=== PATIENT | female | born 1950 | race Two or more races ===

== ENCOUNTER 2016-08-08 05:32 | Inpatient (IN) | payer OTHER ==
--- NOTE | 2016-08-07 21:06 | PREOPHP ---
DATE OF ADMISSION: 08/08/2016 This patient is coming for surgery on 08/08/2016. HISTORY OF PRESENT ILLNESS: This is a 66-year-old female 3, para 2, abortions 1. This rashad ent has been complaining of a mass that is protruding outside of her and with difficulties urinating with obstruction in urinating. She was diagnosed with a severe uterovaginal prolapse and she is inc ontinent only at times when she puts the cervix back up in the vagina. The patient has had this pro blem for a while and she has been advised for a vaginal reconstruction a long time ago and she has b een procrastinated. This patient has been using estrogen cream and at this point, she is willing to have this uterus taking care office when it comes outside, it is hard to put it back in. Patient liseth ad tried Kegel exercises and estrogen cream for a long time with no success. PAST MEDICAL HISTORY: No surgeries, no medical history, she is using only Vitamin D and estrogen. FAMILY HISTORY: Diabetes, she never smoked or drank and no medical antecedents. The patient is usi ng estrogen cream alone. No other Medications. PHYSICAL EXAMINATION: She is 61 inches. She weighs 117. Her blood pressure is 140/80 and she is af ebrile. GENERAL APPEARANCE: Good, well-nourished, well-developed, no acute distress, good hygiene, normal g rooming and ear nose and throat: Negative. HEAD AND NECK: Neck normal. No masses. LUNGS: Clear. HEART: Normal sinus rhythm. BREASTS: Soft, nontender, no masses. ABDOMEN: Soft, nontender, no masses. PELVIC: External genitalia with a large cystourethrocele, grade III. Uterus with prolapse, grade I II to IV. Adnexa are normal. EXTREMITIES: Normal with normal pulses and no edema. DIAGNOSIS: 1. Uterovaginal prolapse, complete. 2. Pelvic pressure, pelvic pain. 3. Mild to moderate urinary incontinence. PLAN: She is undergoing a vaginal total hysterectomy, possible anterior repair. She has been advis ed of the possible risks and possible complications OF the procedure with her alternatives and optio ns. Written information was provided. She had no more questions and agreed to go ahead with the pr ocedure with full understanding and no more questions. Dictated By: ANGELA PIKE/NTS Conf#: [id number] DID#: [id number]
[2016-08-08] VITALS (13 sets, daily range): BP systolic 93–122; BP diastolic 42–55; PULSE 56–77; RESP 14–26; Ht 157.5 cm; Wt 52.0 kg
[~2016-08-08] VITALS: Ht 157.5 cm; Wt 52.0 kg
[~2016-08-08 05:32] MED LIST: NO MEDS
[2016-08-08] MEDS ORDERED: CEFAZOLIN 2 GM/50 ML (PMX) 50 ML IVPB SCH (06:00)
[2016-08-08] MEDS ORDERED: THROMBIN 5000 UNIT VIAL ONE (06:29)
[2016-08-08] MEDS ORDERED: BUPIVACAINE 0.25%/EPI (SDV) 30 ML INJ ONE (06:29)
[2016-08-08] MEDS ORDERED: SUCCINYLCHOLINE CHLORIDE 100 MG/5 ML SYG IV ONE (06:59)
[2016-08-08] MEDS ORDERED: ONDANSETRON 4 MG INJ ONE (06:59)
[2016-08-08] MEDS ORDERED: METOCLOPRAMIDE 10 MG INJ ONE (06:59)
[2016-08-08] MEDS ORDERED: ROCURONIUM 50 MG INJ ONE (06:59)
[2016-08-08] MEDS ORDERED: PROPOFOL 20 ML ONE (06:59)
[2016-08-08] MEDS ORDERED: FENTAnyl 50 MCG/ML VIAL ONE (06:59)
[2016-08-08] MEDS ORDERED: CEFAZOLIN 1 GM INJ ONE (07:00)
[2016-08-08] MEDS ORDERED: THROMBIN 5000 UNIT VIAL TOP ONE (07:15)
[2016-08-08] MEDS ORDERED: BUPIVACAINE 0.25%/EPI (SDV) 30 ML INJ INJ ONE (07:15)
[2016-08-08] MEDS ORDERED: CHOL400T10 PO (07:20)
[2016-08-08] MEDS ORDERED: LIDOCAINE 2% JELLY 5 ML ONE (08:29)
[2016-08-08] MEDS ORDERED: HYDROCODONE/APAP (5/325) TAB PO PRN ×4 (08:30→09:30)
[2016-08-08] MEDS ORDERED: DIPHENHYDRAMINE 50 MG INJ IV PRN (08:30)
[2016-08-08] MEDS ORDERED: NALOXONE (0.4 MG/ML) INJ IV PRN (08:30)
[2016-08-08] MEDS ORDERED: HYDROmorphONE 0.2 MG/ML PCA IV SCH (08:30)
[2016-08-08] MEDS ORDERED: HYDROmorphONE (0.2 MG/ML) 10ML SYG IV PRN ×3 (08:30)
[2016-08-08] MEDS ORDERED: FENTAnyl 50 MCG/ML VIAL IV PRN ×2 (08:30)
[2016-08-08] MEDS ORDERED: MEPERIDINE 25 MG INJ IV PRN (08:30)
[2016-08-08] MEDS ORDERED: ONDANSETRON 4 MG INJ IV PRN ×2 (08:30)
[2016-08-08] MEDS ORDERED: NEOSTIGMINE 3 MG/3 ML SYRINGE ONE (09:12)
[2016-08-08] MEDS ORDERED: ATROPINE 1 MG/10 ML SYRINGE ONE (09:12)
--- NOTE | 2016-08-08 09:12 | HPN ---
Date/Time of Note Date/Time of Note DATE: 08/08/16 TIME: 09:11 Interval H&P Admission Note Pt. seen H&P reviewed: No system changes ANGELA JARVIS MD Aug 08, 2016 09:12
[2016-08-08] MEDS: LACTATED RINGER'S 1,000 ML IV SCH ×3 (09:17→21:16)
--- NOTE | 2016-08-08 09:17 | OPR ---
Date/Time of Note Date/Time of Note DATE: 08/08/16 TIME: 09:14 Operative Report Free Text/Dictation vaginal total hysterectomy Procedure Date: Aug 08, 2016 Preoperative Diagnosis complete uterovaginal prolapse Postoperative Diagnosis same left vaginal polyp Operation Performed vaginal total hysterectomy left vaginal polyp excision Surgeon: ANGELA JARVIS MD Special Education Director: ORIANA ECHAVARRIA MD Anesthesia: general Anesthesiologist: STEPHY SUH MD Estimated Blood Loss: 0 - 10 ml's Specimens uterus vaginal polyp Complications: None Pt Condition Post Procedure: stable Disposition: PACU ANGELA JARVIS MD Aug 08, 2016 09:17
[2016-08-08] MEDS ORDERED: ZOLPIDEM 5 MG TAB PO PRN (09:30)
[2016-08-08] MEDS ORDERED: KETOROLAC 30 MG INJ IV PRN (09:30)
[2016-08-08] MEDS ORDERED: BISACODYL (EC) 5 MG TAB PO PRN (09:30)
[2016-08-08] MEDS ORDERED: HYDROmorphONE 1 MG/ML SYG IV PRN (09:30)
[2016-08-08] MEDS ORDERED: DIPHENHYDRAMINE 50 MG CAP PO PRN (09:30)
--- NOTE | 2016-08-08 10:13 | OPR ---
DATE OF OPERATION: 08/08/2016 PROCEDURE: Vaginal total hysterectomy PREOPERATIVE DIAGNOSES: Complete uterovaginal prolapse. POSTOPERATIVE DIAGNOSIS: Complete uterovaginal prolapse. OPERATION PERFORMED: Complete uterovaginal prolapse, plus left vaginal polyp. ADDITIONAL PROCEDURE: Vaginal total hysterectomy with excision of vaginal polyp, left vaginal wall SURGEON: Angela Laura MD. TICKET BROKER: Dr. Gan. ANESTHESIOLOGIST: Feliciano Rainey MD. ANESTHESIA: General. DESCRIPTION OF PROCEDURE: Patient was given general anesthesia, placed in the lithotomy position. The perineal and vaginal area were prepped and draped. The vaginal speculum was applied and the cer vix was held. The cervix was held with Aquilino clamps anteriorly and posteriorly, and by holding the cervix the uterus was completely came outside herself. An injection with Xylocaine and epinephrine was given and a circular incision was made around the cervix at the cervicovaginal junction. The an terior cul-de-sac was found and the posterior cul-de-sac was found. Then, the cardinal ligaments an d uterosacral ligaments were clamped, cut and tied after using the LigaSure instrument at 3 green ba rs. The uterine vessels were clamped in both sides as well with the same LigaSure instrument and in cised with good hemostasis. The uterus was inverted and the adnexal pedicle with the ovarian ligame nt and tube were clamped in both sides and the uterus was removed. The cervix was very elongated. The uterus fundus was very small. The adnexal pedicles were tied with 2 [id number] sutures wit h #1 Vicryl and held. The bleeding was assessed at this time. The uterosacral ligament in both varsha es were sutured with #1 Vicryl and the sutures were held. The cavity was revised. Both ovaries wer e palpable, small, very high up on the pelvis, and I could not see the tubes or ovaries. The perito neum was now closed with a pursestring suture with #0 Vicryl. The adnexal pedicle and uterosacral p edicles were tied to ipsilateral side and brought out to the posterior and anterior vaginal wall. T he vagina was closed with interrupted sutures with #[address] vertically and the tying of the uterosacral ligament and adnexal pedicle lifted up the vaginal cuff. There was no active bleed ing. At this point we checked on the bladder, that appears to be normal, with normal CVA angle. Th ere was no prolapse on the bladder. There was marked vaginal atrophy. The vaginal sterile dressing s was placed with Xeroform gauze and a Moraes catheter to the bladder with clear urine that was drain ed. The patient tolerated the procedure well and left the OR awake and stable. Sponge counts and i nstrument counts were correct. Intravenous antibiotics were given for prophylaxis. Dictated By: ANGELA PIKE/NTS Conf#: [id number] DID#: [id number]
[2016-08-08] MEDS: METOCLOPRAMIDE 10 MG TAB PO SCH ×3 (12:59→23:56)
--- NOTE | 2016-08-08 14:04 | RADRPT ---
Vent Rate: 80 bpm RR Interval: 0 msec AR Interval: 166 msec QRS Duration: 86 msec QT Interval: 360 msec QTC Interval: 415 msec P-R-T [place]: 65 - 58 - 44 degrees Normal sinus rhythm Normal ECG Electronically Signed By: Dwight Villa [id number]
[2016-08-08] MEDS: KETOROLAC 30 MG INJ IV SCH ×2 (14:23→21:10)
[2016-08-08] MEDS: CEFAZOLIN 1 GM/50 ML (PMX) 50 ML IVPB SCH ×2 (14:24→22:11)
[2016-08-09] MEDS: LACTATED RINGER'S 1,000 ML IV SCH ×3 (01:17→09:17)
[2016-08-09] MEDS: KETOROLAC 30 MG INJ IV SCH ×4 (02:00→20:00)
[2016-08-09] MEDS: CEFAZOLIN 1 GM/50 ML (PMX) 50 ML IVPB SCH (05:38)
[2016-08-09] MEDS: METOCLOPRAMIDE 10 MG TAB PO SCH ×3 (05:38→18:29)
[2016-08-09 05:49] LABS: ADD SCAN DIFF NO
[2016-08-09 05:53] LABS: BASOPHILS % 0.2 % (0.0-2.0); EOSINOPHILS # 0.1 10^3/ul (0.0-0.5); EOSINOPHILS % 1.1 % (0.0-7.0); HEMATOCRIT 34.5 % (37.0-47.0); HEMOGLOBIN 11.7 g/dl (12.0-16.0); LYMPHOCYTES # 2.1 10^3/ul (0.8-2.9); LYMPHOCYTES % 23.4 % (15.0-51.0); MEAN CORPUSCULAR HEMOGLOBIN 30.1 pg (29.0-33.0); MEAN CORPUSCULAR HGB CONC 33.9 g/dl (32.0-37.0); MEAN CORPUSCULAR VOLUME 88.7 fl (82.0-101.0); MEAN PLATELET VOLUME 10.1 fl (7.4-10.4); MONOCYTE # 0.7 10^3/ul (0.3-0.9); NEUTROPHIL # 6.1 10^3/ul (1.6-7.5); NEUTROPHILS % 67.1 % (39.0-77.0); PLATELET COUNT 203 10^3/UL (140-415); RED BLOOD COUNT 3.89 10^6/ul (4.20-5.40); RED CELL DISTRIBUTION WIDTH 13.4 % (11.5-14.5); WHITE BLOOD COUNT 9.1 10^3/ul (4.8-10.8)
[2016-08-09 06:41] LABS: POTASSIUM 4.1 mmol/L (3.5-5.1)
[2016-08-09 07:25] VITALS: BP 111/49; RESP 20
--- NOTE | 2016-08-09 11:34 | PN ---
Date/Time of Note Date/Time of Note DATE: 08/09/16 TIME: 11:32 Assessment/Plan Lines/Catheters IV Catheter Type (from [facility]): Peripheral IV Moraes in Place (from [facility]): Yes Subjective 24 Hr Interval Summary DOING WELL., NOT UP YET AFEBRILE CBC WNL ABDOMEN SOFT NON TENDER, Passing gases Constitutional: BM, ambulates, flatus, improved, no complaints, urine output Detailed Summary Eyes: no complaints ENT: no complaints Respiratory: no complaints Cardiovascular: no complaints Gastrointestinal: no complaints Genitourinary: no complaints Musculoskeletal: no complaints Skin: no complaints Neurologic: no complaints Endocrine: no complaints Lymphatic: no complaints Psychological: nl mood/affect, no complaints Immunologic: no complaints Exam/Review of Systems Vital Signs Vitals Vital Signs Date Time Temp Pulse Resp B/P Pulse Ox O2 Delivery O2 Flow Rate FiO2 08/09/16 07:25 98.2 68 20 111/49 96 08/08/16 11:21 Room Air Intake and Output 08/08/16 08/08/16 08/09/16 15:00 23:00 07:00 Intake Total 600 ml 1730 ml 1500 ml Output Total 250 ml 700 ml 1050 ml Balance 350 ml 1030 ml 450 ml Exam Constitutional: alert, oriented, well developed Psych: nl mood/affect, no complaints Head: atraumatic, normocephalic Eyes: EOMI, nl conjunctiva, nl lids, nl sclera ENMT: mucosa pink and moist, nl external ears & nose, nl lips & teeth, nl nasal mucosa & septum Neck: non-tender, supple Respiratory: clear to auscultation, normal air movement Cardiovascular: nl pulses, regular rate and rhythm Gastrointestinal: nl liver, spleen, non-tender, soft Musculoskeletal: nl extremities to inspection, nl gait and stance Extremities: normal pulses Neurological: CATTLE INSPECTOR II-XII intact, nl mental status, nl speech, nl strength Skin: nl turgor, rash or lesions Lymph: nl lymph nodes Results Result Diagram: 08/09/16 0515 08/09/16 0515 ANGELA JARVIS MD Aug 09, 2016 11:34
[2016-08-09 19:43] VITALS: BP 132/60; RESP 18
[2016-08-10] MEDS: KETOROLAC 30 MG INJ IV SCH ×2 (02:00→08:00)
[2016-08-10] MEDS: METOCLOPRAMIDE 10 MG TAB PO SCH ×2 (06:00)
[2016-08-10 07:51] VITALS: BP 136/65; RESP 18
--- NOTE | 2016-08-10 09:12 | PD.PPDC ---
MULTIPLE RESAW OPERATOR Discharge Instruction Condition Patient Condition: Good Diet Diet: Resume Regular Diet Activity/Restrictions Activity: Normal Activity May Shower Restrictions: No Exercising No Lifting No Driving No Sexual Activity Nothing in the Vagina No Roper No Tampons, douche Follow-up Follow-up with Physician: 2 Return to clinic for CHICK GRADER Instructions: Fever greater than 101 Chills Worsening abdominal pain Excessive Vaginal Bleeding More than 2 pads per hour Unable to tolerate diet ANGELA JARVIS MD Aug 10, 2016 09:12
--- NOTE | 2016-08-10 11:39 | DS ---
DATE OF ADMISSION: 08/08/2016 DATE OF DISCHARGE: 08/10/2016 PREOPERATIVE DIAGNOSIS: Complete uterovaginal prolapse POSTOPERATIVE DIAGNOSES: 1. Complete uterovaginal prolapse. 2. Left vaginal polyp. PROCEDURE: Vaginal total hysterectomy, excision of left vaginal polyp. COMPLICATIONS: None. HISTORY: This is a 66-year-old female 3, para 2. The patient has been complaining of a vag inal mass that was coming out of herself for the last few years with mild urinary tract obstruction. She was diagnosed with severe uterine prolapse and she had been offered a hysterectomy for a long time. The patient finally decided to go ahead with the surgery and she underwent a vaginal hysterec brennan. The bladder and rectum were also prolapsed mildly. We did not fix them because they were not symptomatic. The urinary problem was only mild and subtle. She underwent the procedure without co mplications. She had been sent home on her second postoperative day, voiding well, with passing gas ses and bowel movement, eating, no nausea, tolerating diet, ambulatory, afebrile with a hemoglobin o f 11.7, hematocrit of 34.5 with normal white count. The patient was stable to be discharged home. She was given further advice of what to do and not to do. She was ambulatory. She was given Tyleno l No. 3 p.r.n. severe pain and ibuprofen for moderate pain. She was to have a regular diet and see me at any time if she has a problem or in about 10 days. She was stable and in good condition and h appy to go home. FINAL DIAGNOSIS: Complete uterovaginal prolapse. Dictated By: ANGELA PIKE/ALFREDO Conf#: [id number] DID#: [id number]
== END 2016-08-10 11:00 | disposition home or self-care (01) | DRG 743 ==
LOC: REC 05:32 → MS2 10:55
PROVIDERS: ADMIT Obstetrics & Gynecology; ATTEND Obstetrics & Gynecology
PROC: 0UTC7ZZ Resection of Cervix, Via Natural or Artificial Opening (ICD-10-PCS; 2016-08-08)
PROC: 0UBGXZZ Excision of Vagina, External Approach (ICD-10-PCS; 2016-08-08)
PROC: 0UT97ZZ Resection of Uterus, Via Natural or Artificial Opening (ICD-10-PCS; principal; 2016-08-08 07:30)
DX: N81.3 Complete uterovaginal prolapse (principal); N84.2 Polyp of vagina; R32 Unspecified urinary incontinence
CPT/HCPCS: 80051; 84520; 85025; 86850; 86900; 86901; 86920; 87086; 88305; 93005; J0461; J0690; J1170; J1885; J2405; J2710; J2765; J3010; J7120; J7999